=== PATIENT | female | born 1955 | race African-American/Black ===

== ENCOUNTER 2018-02-15 17:35 | Emergency (ER) | payer OTHER ==
[2018-02-15 17:50] VITALS: TEMP 98.2; BMI 24.1
--- NOTE | 2018-02-15 17:52 | PDOC ---
Rapid Medical Evaluation Chief Complaint: Blood Pressure Problem Time Seen by Provider: 02/15/18 17:41 Medical Evaluation: Allergies Allergy/AdvReac Type Severity Reaction Status Date / Time No Known Allergies Allergy Verified 02/15/18 17:46 Vital Signs Temp Pulse Resp BP Pulse Ox 98.2 F 66 18 188/88 100 02/15/18 17:42 02/15/18 17:42 02/15/18 17:42 02/15/18 17:42 02/15/18 17:42 02/15/18 17:48 I have performed a brief in person evaluation of this patient. The patient presents with chief complaint of : h/o HTN, hypercalcemia and brain tumor removal in 2013 sent in by PCP for evaluation of EKG changes on routine physical. report no symptoms Pertinent PE findings: elevate systolic BP. normal RRR, Lung CTA c/l I have ordered the following: EKG, CBC, CMP, Troponins The patient will proceed to the ER for further evaluation 02/15/18 17:55 Discharge Disposition - Diagnosis Uncontrolled hypertension - Referrals Referrals: Yadira Moreno MD [Primary Care Provider] - - Patient Instructions - Post Discharge Activity
[2018-02-15 18:11] LABS: BASO % 0.4 % (0-2.0); EOS % 1.3 % (0-4.5); HEMATOCRIT 41.3 % (32.4-45.2); LYMPH % 31.4 % (8-40); MCHC 33.8 g/dl (32.0-36.0); MEAN CELL VOLUME 91.9 fl (80-96); MEAN PLT VOLUME 8.8 fl (7.5-11.1); MONO % 12.3 % (3.8-10.2); NEUT % 54.6 % (42.8-82.8); PLATELET COUNT 243 K/MM3 (134-434); RDW 13.7 % (11.6-15.6); WHITE BLOOD COUNT 7.1 K/mm3 (4.0-10.0)
[2018-02-15 18:38] LABS: ANION GAP 10 MMOL/L (8-16); BLOOD UREA NITROGEN 18 mg/dL (7-18); CALCIUM 10.1 mg/dL (8.5-10.1); CHLORIDE 104 mmol/L (98-107); CO2 27 mmol/L (21-32); CREATININE 0.8 mg/dL (0.55-1.02); GLUCOSE,RANDOM 156 mg/dL (74-106); POTASSIUM 3.9 mmol/L (3.5-5.1); SODIUM 141 mmol/L (136-145)
[2018-02-15 18:39] LABS: ALBUMIN 4.1 g/dl (3.4-5.0); BILIRUBIN,TOTAL 0.3 mg/dL (0.2-1.0); SGOT/AST 24 U/L (15-37); SGPT/ALT 29 U/L (13-61); TOT PROT 7.7 g/dl (6.4-8.2)
[2018-02-15 18:41] LABS: ALK PHOS 144 U/L (45-117)
--- NOTE | 2018-02-15 19:25 | PDOC ---
History of Present Illness - General Chief Complaint: Blood Pressure Problem Stated Complaint: PCP SENT, bradycardia, blood pressure problem Time Seen by Provider: 02/15/18 17:41 - History of Present Illness Initial Comments: 02/15/18 20:59 63 yo F w a hx of HTN, brain tumor in 2013 s/p removal, insomnia, hypercalcemia is here a COMPUTER SYSTEMS ADMINISTRATOR from her former clinic sent her into the hospital bc the patient had high blood pressure and a slow heart rate. The patient was in the [place] for the past 5 months and she came back last week. She went to visit her old doctor, who is now , because she needed a refill for her nifedipine. The COMPUTER SYSTEMS ADMINISTRATOR at the clinic noticed her BP was 189/88, as well as her heart rate was 55 so she sent her into the ED to be evaluated. She was not given nifedipine at her clinic. The patient is asymptomatic. She denies a headache, blurry vision, difficulty walking, chest pain, difficulty breathing or sob, recent fevers, chills or infections, or any other complaints. 02/15/18 21:01 02/15/18 21:08 Past History - Past Medical History Allergies/Adverse Reactions: Allergies Allergy/AdvReac Type Severity Reaction Status Date / Time No Known Allergies Allergy Verified 02/15/18 17:46 Home Medications: Ambulatory Orders Aspirin [ASA -] 81 mg PO DAILY #30 tab.chew 12/20/13 Atenolol [Tenormin -] 50 mg PO DAILY #30 tablet 12/20/13 Lisinopril [Prinivil] 20 mg PO DAILY #30 tablet 12/20/13 Nifedipine [Procardia Xl] 30 mg PO DAILY #30 tab.er.24 12/20/13 COPD: No DVT: No Dementia: No Diabetes: No HTN: Yes Other medical history: high calcium, [place] - Suicide/Smoking/Psychosocial Hx Smoking History: Never smoked Have you smoked in the past 12 months: No If you are a former smoker, when did you quit?: "Years ago" only smoked few cigs /day Information on smoking cessation initiated: Yes Hx Alcohol Use: No Drug/Substance Use Hx: No Substance Use Type: None Hx Substance Use Treatment: No Review of Systems - Review of Systems Comments:: 02/15/18 21:14 CONSTITUTIONAL: Absent: fever, chills, diaphoresis, generalized weakness, malaise, loss of appetite HEENT: Absent: rhinorrhea, nasal congestion, throat pain, throat swelling, difficulty swallowing, mouth swelling, ear pain, eye pain, visual Changes CARDIOVASCULAR: Absent: chest pain, syncope, palpitations, irregular heart rate, lightheadedness , peripheral edema RESPIRATORY: Absent: cough, shortness of breath, dyspnea with exertion, orthopnea, wheezing, stridor, hemoptysis GASTROINTESTINAL: Absent: abdominal pain, abdominal distension, nausea, vomiting, diarrhea, constipation, melena, hematochezia GENITOURINARY: Absent: dysuria, frequency, urgency, hesitancy, hematuria, flank pain, genital pain MUSCULOSKELETAL: Absent: myalgia, arthralgia, joint swelling SKIN: Absent: rash, itching, pallor HEMATOLOGIC/IMMUNOLOGIC: Absent: easy bleeding, easy bruising, lymphadenopathy, frequent infections ENDOCRINE: Absent: unexplained weight gain, unexplained weight loss, heat intolerance, cold intolerance NEUROLOGIC: Absent: headache, focal weakness or paresthesias, dizziness, unsteady gait, seizure, mental status changes, bladder or bowel incontinence PSYCHIATRIC: Absent: anxiety, depression, suicidal or homicidal ideation, hallucinations. *Physical Exam - Vital Signs Last Vital Signs Temp Pulse Resp BP Pulse Ox 98.2 F 66 18 188/88 100 02/15/18 17:42 02/15/18 17:42 02/15/18 17:42 02/15/18 17:42 02/15/18 17:42 - Physical Exam Comments: 02/15/18 21:15 GENERAL: Well developed, well nourished. Awake and alert. No acute distress. HEENT: Normocephalic, atraumatic. PERRLA, EOMI. No conjunctival pallor. Sclera are non- icteric. Moist mucous membranes. Oropharynx is clear. NECK: Supple. Full ROM. No JVD. No thyromegaly. No lymphadenopathy. CARDIOVASCULAR: Regular rate and rhythm. No murmurs, rubs, or gallops. Distal pulses are 2+ and symmetric. PULMONARY: No evidence of respiratory distress. Lungs clear to auscultation bilaterally. No wheezing, rales or rhonchi. ABDOMINAL: Soft. Non-tender. Non-distended. No rebound or guarding. No organomegaly. Normoactive bowel sounds. MUSCULOSKELETAL Normal range of motion at all joints. No bony deformities or tenderness. No CVA tenderness. EXTREMITIES: No cyanosis. No clubbing. No edema. No calf tenderness. SKIN: Warm and dry. Normal capillary refill. No rashes. No jaundice. NEUROLOGICAL: Alert, awake, appropriate. Cranial nerves 2-12 intact. No deficits to light touch and temperature in face, upper extremities and lower extremities. No motor deficits in the in face, upper extremities and lower extremities. Normoreflexic in the upper and lower extremities. Normal speech. Toes are down-going bilaterally. Gait is normal without ataxia. PSYCHIATRIC: Cooperative. Good eye contact. Appropriate mood and affect. ED Treatment Course - LABORATORY CBC & Chemistry Diagram: 02/15/18 18:01 02/15/18 18:01 - ADDITIONAL ORDERS Additional order review: Laboratory Results 02/15/18 18:01 Sodium 141 Potassium 3.9 Chloride 104 Carbon Dioxide 27 Anion Gap 10 BUN 18 Creatinine 0.8 Creat Clearance w eGFR > 60 Random Glucose 156 H Calcium 10.1 Total Bilirubin 0.3 AST 24 ALT 29 Alkaline Phosphatase 144 H Creatine Kinase 140 Troponin I < 0.02 Total Protein 7.7 Albumin 4.1 02/15/18 18:01 RBC 4.50 MCV 91.9 MCHC 33.8 RDW 13.7 MPV 8.8 Neutrophils % 54.6 D Lymphocytes % 31.4 D Monocytes % 12.3 H Eosinophils % 1.3 D Basophils % 0.4 Medical Decision Making - Medical Decision Making 02/15/18 21:16 63 yo F w a hx of brain tumor s/p removal, hypercalcemia, HTN, here with asymptomatic high BP and a slow heart rate. She has no worrisome symptoms. Labs and ekg are within normal limits. Her BP is likely high bc she has not taken her nifedipine which she usually takes. Her HR is probably low bc she is taking extra atenolol to compensate for not taking Nifedipine. Plan: Give one dose of nifedipine here in the ER and DC patient so she can fill her prescription of nifedipine and FU with her PCP. *DC/Admit/Observation/Transfer Diagnosis at time of Disposition: Uncontrolled hypertension - Discharge Dispostion Disposition: HOME Condition at time of disposition: Stable Decision to Admit order: No - Referrals Referrals: Yadira Moreno MD [Primary Care Provider] - - Patient Instructions Printed Discharge Instructions: DI for High Blood Pressure, How to Monitor Your Blood Pressure at Home - Post Discharge Activity
--- NOTE | 2018-02-15 20:09 | PDOC ---
Attending Attestation - HPI HPI: 02/15/18 20:47 The patient is a 63 year old female, with a significant past medical history of HTN, hypercalcemia and brain tumor removal in 2013, who presents to the ED complaining of after being sent by her PCP for evaluation of EKG changes. 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 On presentation the patient denies any kind of symptoms. The patient denies chest pain, shortness of breath, headache and dizziness. Denies fever, chills, nausea, vomiting, diarrhea or constipation. Denies dysuria , frequency, urgency and hematuria. Allergies: None Past surgical history: None Reported Social History: No alcohol, tobacco or drug use reported - Physicial Exam PE: 02/15/18 20:47 Constitutional: Awake, alert, oriented. No acute distress. Head: Normocephalic. Atraumatic Eyes: PERRL. EOMI. Conjunctivae are not pale. ENT: Mucous membranes are moist and intact. Posterior pharynx without exudates or erythema. Uvula midline. Neck: Supple. Full ROM. No lymphadenopathy. Cardiovascular: Regular rate. Regular rhythm. S1, S2 regular. Distal pulses are 2+ and symmetric. Pulmonary/Chest: No evidence of respiratory distress. Clear to auscultation bilaterally No wheezing, rales or rhonchi. Abdominal: Soft and non-distended. There is no tenderness. No rebound, guarding or rigidity. No organomegaly. No palpable masses. Good bowel sounds. Back: No CVA tenderness. Musculoskeletal: No edema. No cyanosis. No clubbing. Full range of motion in all extremities. Nocalf tenderness. Radial/pedal pulses are intact and 2+ bilaterally Skin: Skin is warm and dry. No petechiae. No purpura. Neurological: Alert and oriented to person, place, and time. Cranial nerves II -XII are grossly intact. Normal speech. Strength is grossly symmetric. No sensory deficits. Psychiatric: Good eye contact. Normal interaction, affect and behavior. <Cody Tran - Last Filed: 02/15/18 20:47> - Resident Resident Name: Ramon Billings - ED Attending Attestation I have performed the following: I have examined & evaluated the patient, The case was reviewed & discussed with the resident, I agree w/resident's findings & plan, Exceptions are as noted - Medical Decision Making 02/15/18 20:09 I, Dr. Eleni Mack, DO, attest that this document has been prepared under my direction and personally reviewed by me in its entirety. I further attest, that it accurately reflects all work, treatment, procedures and medical decision -making performed by me. 02/15/18 20:10 63yo female sent by her [employer]ER for eval of bradycardia -pt was visiting the DR and ran out of her nifedipine - has been taking extra atenolol and presented to her PMD with elevated BP and slow heart rate -pt denies all somatic complaints and is unsure why she was sent to the ED -will check labs, neuro intact, -will repeat EKG -pt is stable 02/15/18 20:14 call placed to Michelle Young [facility] to update on labs and outpt management 02/15/18 20:14 labs reviewed and stable 02/15/18 20:52 pt requesting to go home. denies all complaints. has Rx for outpt imaging, labs - has Rx for bp meds stable for d/c to home <Eleni Mack - Last Filed: 02/15/18 20:54> Heart Score/ECG Review - ECG Intrepretation Comment:: 02/15/18 20:11 sinus at 73, L axis, lvh, no acute st/t wave findings <Eleni Mack - Last Filed: 02/15/18 20:54>
[2018-02-15] MEDS ORDERED: NIFEdipine E.R. 90 MG TABLET (FP) PO ONE (21:39)
[2018-02-15 21:44] VITALS: BP 175/80; PULSE 57
--- NOTE | 2018-02-16 15:40 | EKG ---
Test Reason : Blood Pressure : / mmHG Vent. Rate : 073 BPM Atrial Rate : 073 BPM P-R Int : 160 ms QRS Dur : 084 ms QT Int : 376 ms P-R-T Axes : 072 -42 045 degrees QTc Int : 414 ms NORMAL SINUS RHYTHM POSSIBLE LEFT ATRIAL ENLARGEMENT LEFT AXIS DEVIATION LEFT VENTRICULAR HYPERTROPHY NONSPECIFIC T WAVE ABNORMALITY ABNORMAL ECG WHEN COMPARED WITH ECG OF 19-DEC-2013 08:54, ST LESS DEPRESSED IN INFERIOR LEADS T WAVE INVERSION NO LONGER EVIDENT IN INFERIOR LEADS Confirmed by MEHNAZ PALMER MD ([id number]) on 02/16/2018 3:39:47 PM Referred By: Confirmed By:MEHNAZ PALMER MD
[2018-02-16] MEDS ORDERED: NIFEdipine E.R. 90 MG TABLET (FP) PO ONE (20:51)
== END 2018-02-15 21:44 | disposition home or self-care (01) ==
LOC: JER 17:35
DX: I10 Essential (primary) hypertension (principal); R00.0 Tachycardia, unspecified
CPT/HCPCS: 36415; 80053; 82550; 84484; 85025; 93005; 93010; 99283-25

== ENCOUNTER 2018-08-26 19:58 | Emergency (ER) | payer OTHER ==
[2018-08-26 20:10] VITALS: TEMP 97.7; BMI 26.5
--- NOTE | 2018-08-26 20:21 | PDOC ---
History of Present Illness - General Chief Complaint: Lightheaded Stated Complaint: DIZZINESS/VOMITING Time Seen by Provider: 08/26/18 20:21 - History of Present Illness Initial Comments: 08/26/18 20:57 Ms. Robert Payne is a 63 yo female w/ HTN, hypercalcemia, and known schwannoma s/p resection in 2013 (residual left over and reportedly slowly growing) who presents for evaluation of dizziness for 2 hours. Patient reports she has had similar episodes 3-4 times however has never been evaluated for them in the past. Patient reports she was fine this morning however began to experience weakness and nausea this evening. Patient denies any headache or other symptoms however presents as she has not felt this week previously. The patient denies chest pain, shortness of breath, and headache. Denies fever, chills, nausea, vomit, diarrhea and constipation. Denies dysuria, frequency, urgency and hematuria. Past History - Past Medical History Allergies/Adverse Reactions: Allergies Allergy/AdvReac Type Severity Reaction Status Date / Time No Known Allergies Allergy Verified 08/26/18 20:11 Home Medications: Ambulatory Orders Aspirin [ASA -] 81 mg PO DAILY #30 tab.chew 12/20/13 Atenolol [Tenormin -] 50 mg PO DAILY #30 tablet 12/20/13 Nifedipine [Procardia Xl] 90 mg PO DAILY 08/26/18 COPD: No DVT: No Dementia: No Diabetes: No HTN: Yes - Suicide/Smoking/Psychosocial Hx Smoking History: Never smoked Have you smoked in the past 12 months: No If you are a former smoker, when did you quit?: "Years ago" only smoked few cigs /day Information on smoking cessation initiated: No Hx Alcohol Use: No Drug/Substance Use Hx: No Substance Use Type: None Hx Substance Use Treatment: No Review of Systems - Review of Systems Comments:: 08/26/18 21:11 GENERAL/CONSTITUTIONAL: +Weakness/dizziness as described. No fever or chills. HEAD, EYES, EARS, NOSE AND THROAT: No change in vision. No ear pain or discharge. No sore throat. CARDIOVASCULAR: No chest pain or shortness of breath RESPIRATORY: No cough, wheezing, or hemoptysis. GASTROINTESTINAL: No nausea, vomiting, diarrhea or constipation. GENITOURINARY: No dysuria, frequency, or change in urination. MUSCULOSKELETAL: No joint or muscle swelling or pain. No neck or back pain. SKIN: No rash NEUROLOGIC: No headache, loss of consciousness, or change in strength/sensation. ENDOCRINE: No increased thirst. No abnormal weight change HEMATOLOGIC/LYMPHATIC: No anemia, easy bleeding, or history of blood clots. ALLERGIC/IMMUNOLOGIC: No hives or skin allergy. *Physical Exam - Vital Signs Last Vital Signs Temp Pulse Resp BP Pulse Ox 97.7 F 73 16 199/107 H 100 08/26/18 20:07 08/26/18 20:07 08/26/18 20:07 08/26/18 20:07 08/26/18 20:07 - Physical Exam Comments: 08/26/18 21:12 GENERAL: Awake, alert, and fully oriented, in no acute distress HEAD: No signs of trauma, normocephalic, atraumatic EYES: +Bilateral horizontal nystagmus noted. PERRLA, EOMI, sclera anicteric, conjunctiva clear ENT: Auricles normal inspection, hearing grossly normal, nares patent, oropharynx clear without exudates. Moist mucosa NECK: Normal ROM, supple, no lymphadenopathy, JVD, or masses LUNGS: No distress, speaks full sentences, clear to auscultation bilaterally HEART: Regular rate and rhythm, normal S1 and S2, no murmurs, rubs or gallops, peripheral pulses normal and equal bilaterally. ABDOMEN: Soft, nontender, normoactive bowel sounds. No guarding, no rebound. No masses EXTREMITIES: Normal inspection, Normal range of motion, no edema. No clubbing or cyanosis. NEUROLOGICAL: Cranial nerves II through XII grossly intact. Normal speech, normal gait, no focal sensorimotor deficits SKIN: Warm, Dry, normal turgor, no rashes or lesions noted. Moderate Sedation - Procedure Monitoring Vital Signs: Procedure Monitoring Vital Signs Temperature 97.7 F 08/26/18 20:07 Pulse Rate 73 08/26/18 20:07 Respiratory Rate 16 08/26/18 20:07 Blood Pressure 199/107 H 08/26/18 20:07 O2 Sat by Pulse Oximetry (%) 100 08/26/18 20:07 ED Treatment Course - LABORATORY CBC & Chemistry Diagram: 08/26/18 20:55 08/26/18 20:54 Medical Decision Making - Medical Decision Making 08/26/18 22:23 Ms. Robert Payne is a 63 yo female w/ pmh as described who presents for evaluation of symptoms concerning for vertigo vs. cerebellar impingement of known schwannoma vs. electrolyte abnormality. Patient evaluation started accordingly with labs as below, EKG, Head CT. Patient labs grossly wnl as below. Head CT negative for acute process. Patient noted to have continued vomiting in ED - given zofran for relief. Given 05/27 Brain MRI revealing slow growth of schwannoma there is concern that this could be driving dizziness. Neurology paged for consult. 08/26/18 23:27 Discussed patient with neurology who do not believe more imaging indicated at this time. Suggested aggressive medical management to attempt to control dizziness as schwannoma is peripheral process. Recommended admission only if unable to control dizziness for outpatient neurological follow-up. Will comply with these recommendations. Repeat meclizine and fluids given. 08/26/18 23:53 Patient reporting worsening nausea. Ativan 1mg IV given to patient for relief. Patient signed out to Dr. Rees for further evaluation. Laboratory Results - last 24 hr 08/26/18 08/26/18 08/26/18 20:54 20:55 21:00 WBC 12.1 H RBC 4.48 Hgb 14.3 Hct 41.3 MCV 92.1 MCH 31.9 MCHC 34.6 RDW 13.4 Plt Count 239 MPV 9.0 Absolute Neuts (auto) 10.1 H Neutrophils % 83.2 H D Lymphocytes % 10.1 D Monocytes % 5.7 Eosinophils % 0.2 D Basophils % 0.8 Nucleated RBC % 0 Sodium 144 Potassium 3.2 L Chloride 105 Carbon Dioxide 29 Anion Gap 10 BUN 16 Creatinine 0.9 Creat Clearance w eGFR 63.24 Random Glucose 133 H Calcium 10.0 Total Bilirubin 0.3 AST 16 ALT 22 Alkaline Phosphatase 164 H Creatine Kinase 128 Troponin I < 0.02 Total Protein 7.8 Albumin 4.2 Urine Color Yellow Urine Appearance Clear Urine pH 8.5 H D Ur Specific [place] 1.006 L Urine Protein Negative Urine Glucose (UA) Negative Urine Ketones Negative Urine Blood Negative Urine Nitrite Negative Urine Bilirubin Negative Urine Urobilinogen 0.2 Ur Leukocyte Esterase Negative *DC/Admit/Observation/Transfer Diagnosis at time of Disposition: Schwannoma, Dizziness - Discharge Dispostion Decision to Admit order: Yes - Referrals Referrals: ON STAFF,NOT [Primary Care Provider] - - Patient Instructions - Post Discharge Activity
[2018-08-26] MEDS ORDERED: MECLIZINE HCL 25 MG TABLET (FP) PO ONE ×2 (20:48→23:25)
[2018-08-26] MEDS ORDERED: MECLIZINE HCL 25 MG TABLET (FP) ONE ×2 (20:52→23:27)
[2018-08-26 21:06] LABS: BASO % 0.8 % (0-2.0); EOS % 0.2 % (0-4.5); HEMATOCRIT 41.3 % (32.4-45.2); HEMOGLOBIN 14.3 GM/dL (10.7-15.3); LYMPH % 10.1 % (8-40); MCH 31.9 pg (25.7-33.7); MCHC 34.6 g/dl (32.0-36.0); MEAN CELL VOLUME 92.1 fl (80-96); MONO % 5.7 % (3.8-10.2); NEUT % 83.2 % (42.8-82.8); PLATELET COUNT 239 K/MM3 (134-434); RBC 4.48 M/mm3 (3.60-5.2); RDW 13.4 % (11.6-15.6); WHITE BLOOD COUNT 12.1 K/mm3 (4.0-10.0)
[2018-08-26 21:09] LABS: PH,URINE 8.5 (5.0-8.0); URINE APPEARANCE CLEAR; URINE BILIRUBIN NEGATIVE (<2.0 mg/dL); URINE COLOR YELLOW; URINE GLUCOSE (UA) NEGATIVE (NEGATIVE); URINE KETONE NEGATIVE (NEGATIVE); URINE LEUK ESTERASE NEGATIVE (NEGATIVE); URINE NITRITE NEGATIVE (NEGATIVE); URINE PROTEIN NEGATIVE (NEGATIVE); URINE UROBILINOGEN 0.2 mg/dL (0.2-1.0)
[2018-08-26 21:35] LABS: ALBUMIN 4.2 g/dl (3.4-5.0); ALK PHOS 164 U/L (45-117); ANION GAP 10 MMOL/L (8-16); BILIRUBIN,TOTAL 0.3 mg/dL (0.2-1); BLOOD UREA NITROGEN 16 mg/dL (7-18); CHLORIDE 105 mmol/L (98-107); CO2 29 mmol/L (21-32); CREATININE 0.9 mg/dL (0.55-1.3); GLUCOSE,RANDOM 133 mg/dL (74-106); POTASSIUM 3.2 mmol/L (3.5-5.1); SGOT/AST 16 U/L (15-37); SGPT/ALT 22 U/L (13-61); SODIUM 144 mmol/L (136-145); TOT PROT 7.8 g/dl (6.4-8.2)
[2018-08-26] MEDS ORDERED: ONDANSETRON 4 MG/2 ML VIAL IVPUSH ONE (22:03)
[2018-08-26] MEDS ORDERED: ONDANSETRON 4 MG/2 ML VIAL ONE (22:05)
--- NOTE | 2018-08-26 22:05 | PDOC ---
Attending Attestation - Resident Resident Name: Tadeo Howard - ED Attending Attestation I have performed the following: I have examined & evaluated the patient, The case was reviewed & discussed with the resident, I agree w/resident's findings & plan, Exceptions are as noted - HPI HPI: 08/26/18 21:59 The patient is a 63 year old female with past medical history significant for HTN, schwannoma s/p resection, hx of hypercalcemia presents to the emergency department with weakness and dizziness x 1 day. The patient reports she doesnt feel like herself, with associated symptoms of nausea. Had about 5 episodes of vomiting but now states the nausea has resolved. The patient reports having similar symptoms about 3-4 times in the past but none this severe. Denies abdominal pain, chest pain, fever, chills, chest pain or shortness of breath. - Physicial Exam PE: 08/26/18 22:03 GENERAL: Awake, alert, and fully oriented, in no acute distress. HEAD: No signs of trauma EYES: PERRLA, EOMI, sclera anicteric, conjunctiva clear ENT: Auricles normal inspection, hearing grossly normal, nares patent, oropharynx clear without exudates. Moist mucosa NECK: Nontender, no stepoffs, Normal ROM, supple, no lymphadenopathy, JVD, or masses LUNGS: Breath sounds equal, clear to auscultation bilaterally. No wheezes, and no crackles HEART: Regular rate and rhythm, normal S1 and S2, no murmurs, rubs or gallops ABDOMEN: Soft, nontender, normoactive bowel sounds. No guarding, no rebound. No masses EXTREMITIES: Normal range of motion, no edema. No clubbing or cyanosis. No cords, erythema, or tenderness NEUROLOGICAL: + R sided nystagmus, Cranial nerves II through XII intact. 5/5 strength and sensation in all extremities, Normal speech, normal gait, normal cerebellar function SKIN: Warm, Dry, normal turgor, no rashes or lesions noted. - Medical Decision Making 08/26/18 22:04 63 F with dizziness, weakness, and nausea. Has h/o schwannoma that was resected. As of MRI 05/2018, residual tumor has increased in size, which is likely cause of pt's symptoms today. Will evaluate for other process such as cardiac or infectious/metabolic problem. - Labs - CT head - Neuro c/s 08/26/18 23:29 CT negative Spoke with Dr. Velazquez, who does not recommend additional imaging at this time. 08/27/18 01:25 Pt reassessed - now feels significantly better. Pt able to tolerate PO Ambulatory in ED with steady gait Neuro exam non-focal at this time Pt is well appearing, with normal vitals. Clinically stable for DC at this time. I discussed the physical exam findings, ancillary test results and final diagnoses with the patient. I answered all of the patient's questions. The patient was satisfied with the care received and felt comfortable with the discharge plan and treatment plan. The patient agrees to follow up with the primary care physician within 24-72 hours.
[2018-08-26] MEDS ORDERED: POTASSIUM CHLORIDE TABS 20 MEQ TABLET.ER (FP) PO ONE ×2 (22:34→22:38)
[2018-08-26] MEDS ORDERED: SODIUM CHLORIDE 1,000 ML IV STA (23:25)
[2018-08-26 23:36] VITALS: PULSE 68
--- NOTE | 2018-08-26 23:51 | PDOC ---
*Physical Exam - Vital Signs Last Vital Signs Temp Pulse Resp BP Pulse Ox 97.7 F 68 16 150/23 L 100 08/26/18 20:07 08/26/18 23:36 08/26/18 20:07 08/26/18 23:36 08/26/18 20:07 - Physical Exam Comments: 08/26/18 23:49 63 yo F with acoustic schwannoma, HTN, and hypercalcemia that presents to the emergency department with dizziness and weakness for 1 day. Per the patient, she has had 5 emesis events NBNB with dizziness that is consistent with her previous episodes. Denies fever, chills, chest pain, SOB, headaches, visual changes, abdominal pain, dysuria, hematuria, diarrhea, and leg pain/swelling. ED Treatment Course - LABORATORY CBC & Chemistry Diagram: 08/26/18 20:55 08/26/18 20:54 - ADDITIONAL ORDERS Additional order review: Laboratory Results 08/26/18 08/26/18 21:00 20:54 Sodium 144 Potassium 3.2 L Chloride 105 Carbon Dioxide 29 Anion Gap 10 BUN 16 Creatinine 0.9 Creat Clearance w eGFR 63.24 Random Glucose 133 H Calcium 10.0 Total Bilirubin 0.3 AST 16 ALT 22 Alkaline Phosphatase 164 H Creatine Kinase 128 Troponin I < 0.02 Total Protein 7.8 Albumin 4.2 Urine Color Yellow Urine Appearance Clear Urine pH 8.5 H D Ur Specific [place] 1.006 L Urine Protein Negative Urine Glucose (UA) Negative Urine Ketones Negative Urine Blood Negative Urine Nitrite Negative Urine Bilirubin Negative Urine Urobilinogen 0.2 Ur Leukocyte Esterase Negative 08/26/18 20:55 RBC 4.48 MCV 92.1 MCHC 34.6 RDW 13.4 MPV 9.0 Neutrophils % 83.2 H D Lymphocytes % 10.1 D Monocytes % 5.7 Eosinophils % 0.2 D Basophils % 0.8 - Medications Given in the ED: ED Medications Discontinued Medications Generic Name Dose Route Start Last Admin Trade Name Freq PRN Reason Stop Dose Admin Meclizine HCl 25 mg 08/26/18 20:48 08/26/18 20:54 Antivert - PO 08/26/18 20:49 25 mg ONCE ONE Administration Meclizine HCl 25 mg 08/26/18 23:25 08/26/18 23:35 Antivert - PO 08/26/18 23:26 25 mg ONCE ONE Administration Ondansetron HCl 4 mg 08/26/18 22:03 08/26/18 22:12 Zofran Injection IVPUSH 08/26/18 22:04 4 mg ONCE ONE Administration Potassium Chloride 40 meq 08/26/18 22:34 08/26/18 22:42 K-Dur - PO 08/26/18 22:35 40 meq ONCE ONE Administration Medical Decision Making - Medical Decision Making 09/11/18 05:24 63 yo F with a hx of HTN, hypercalcemia, and acoustic schwannoma s/p resection presents to the emergency department with dizziness. Patient was signed out to me by Dr. Howard. Initial vitals: Initial Vital Signs Temp Pulse Resp BP Pulse Ox 97.7 F 73 16 199/107 H 100 08/26/18 20:07 08/26/18 20:07 08/26/18 20:07 08/26/18 20:07 08/26/18 20:07 CT head was negative for acute intracranial process with a residual of the schwannoma approximately 1 cm. Neurology was spoken to (Dr. Velazquez) who states that the patient does not need admission at this time and can be followed on outpatient. ssx improved with meclizine, ativan, zofran, and famotidine. the patient wishes to be discharged to be followed up on outpatient basis. she states her symptoms have resolved and was able to tolerate PO. she was able to ambulate on her own volition without ataxia. Dispo: Discharge *DC/Admit/Observation/Transfer Diagnosis at time of Disposition: Schwannoma, Dizziness - Discharge Dispostion Disposition: HOME Decision to Admit order: No - Prescriptions Prescriptions: Meclizine HCl 25 mg PO TID PRN #21 tablet PRN Reason: Vertigo - Referrals Referrals: ON STAFF,NOT [Primary Care Provider] - [facility] [Provider Group] Mauricio Lang MD [Staff Physician] - - Patient Instructions Printed Discharge Instructions: DI for Vertigo Additional Instructions: you were seen in the emergency department for the evaluation of your dizziness. please follow up with the neurologist within 7 days for follow up care and management. please return to the emergency department if you have worsening symptoms or new concerning symptoms such as fever, chills, intractable nausea and vomiting, inability to walk, and confusion. thank you. - Post Discharge Activity
[2018-08-27] MEDS ORDERED: LORazepam 2 MG/ML SDV VIAL ONE (00:04)
[2018-08-27 00:21] VITALS: BP 150/83
[2018-08-27] MEDS ORDERED: FAMOTIDINE 20 MG/50 ML IVPB 20 MG/50 ML MG IVPB ONE ×3 (01:01→01:05)
--- NOTE | 2018-08-27 23:50 | EKG ---
Test Reason : Blood Pressure : / mmHG Vent. Rate : 073 BPM Atrial Rate : 073 BPM P-R Int : 138 ms QRS Dur : 088 ms QT Int : 342 ms P-R-T Axes : 069 -35 -24 degrees QTc Int : 376 ms NORMAL SINUS RHYTHM POSSIBLE LEFT ATRIAL ENLARGEMENT LEFT AXIS DEVIATION LEFT VENTRICULAR HYPERTROPHY CANNOT RULE OUT SEPTAL INFARCT , AGE UNDETERMINED ABNORMAL ECG WHEN COMPARED WITH ECG OF 15-FEB-2018 17:52, MINIMAL CRITERIA FOR SEPTAL INFARCT ARE NOW PRESENT T WAVE INVERSION NOW EVIDENT IN INFERIOR LEADS Confirmed by ELINA NASH MD ([id number]) on 08/27/2018 11:50:13 PM Referred By: Confirmed By:ELINA NASH MD
== END 2018-08-27 01:38 | disposition home or self-care (01) ==
LOC: JER 19:58
PROC: 3E023NZ Introduction of Analgesics, Hypnotics, Sedatives into Muscle, Percutaneous Approach (ICD-10-PCS; principal; 2018-08-26)
PROC: 3E0337Z Introduction of Electrolytic and Water Balance Substance into Peripheral Vein, Percutaneous Approach (ICD-10-PCS; 2018-08-26)
PROC: 3E033GC Introduction of Other Therapeutic Substance into Peripheral Vein, Percutaneous Approach (ICD-10-PCS; 2018-08-26)
PROC: 3E033GC Introduction of Other Therapeutic Substance into Peripheral Vein, Percutaneous Approach (ICD-10-PCS; 2018-08-26)
DX: D36.10 Benign neoplasm of peripheral nerves and autonomic nervous system, unspecified (principal); R42 Dizziness and giddiness; I10 Essential (primary) hypertension
CPT/HCPCS: 36415; 70450-TC; 80053; 81003; 82550; 84484; 85025; 87086; 93005; 93010; 96361; 96365; 96372; 96375; 99284-25; J7030

== ENCOUNTER 2021-10-05 11:02 | Emergency (ER) | payer OTHER ==
[2021-10-05 11:15] VITALS: TEMP 98.2; BMI 21.2
[2021-10-05] MEDS ORDERED: DIPHTH,PERTUSS(ACELL),TET 0.5 ML DISP.SYRIN IM ONE ×2 (11:39→12:02)
[2021-10-05] MEDS ORDERED: ACETAMINOPHEN 500 MG TABLET (FP) PO ONE (11:49)
[2021-10-05] MEDS ORDERED: ACETAMINOPHEN 325 MG TABLET (FP) ONE (12:02)
[2021-10-05 13:14] LABS: BASO % 0.4 % (0-2.0); HEMATOCRIT 37.4 % (32.4-45.2); HEMOGLOBIN 12.7 GM/dL (10.7-15.3); LYMPH % 12.7 % (8-40); MCH 31.1 pg (25.7-33.7); MEAN CELL VOLUME 91.5 fl (80-96); MONO % 8.2 % (3.8-10.2); NEUT % 77.7 % (42.8-82.8); PLATELET COUNT 287 10^3/uL (134-434); RBC 4.09 M/mm3 (3.60-5.2); RDW 13.9 % (11.6-15.6); WHITE BLOOD COUNT 10.3 K/mm3 (4.0-10.0)
[2021-10-05 14:23] LABS: BLOOD UREA NITROGEN 18.1 mg/dL (7-18); CALCIUM 10.6 mg/dL (8.5-10.1)
[2021-10-05 14:24] LABS: ALBUMIN 3.9 g/dl (3.4-5.0)
[2021-10-05 14:27] LABS: CREATININE 0.8 mg/dL (0.55-1.3)
[2021-10-05 14:28] LABS: BILIRUBIN,TOTAL 0.6 mg/dL (0.2-1)
[2021-10-05 14:29] LABS: TOT PROT 7.5 g/dl (6.4-8.2)
[2021-10-05 14:49] VITALS: BP 119/70; PULSE 77
== END 2021-10-05 14:45 | disposition home or self-care (01) ==
LOC: JER 11:02
PROC: 3E0234Z Introduction of Serum, Toxoid and Vaccine into Muscle, Percutaneous Approach (ICD-10-PCS; principal; 2021-10-05)
DX: M25.561 Pain in right knee (principal)
CPT/HCPCS: 36415; 73562-TC-RT-FY; 80053; 85025; 87040; 90471; 90715; 99284-25